=== PATIENT | female | born 1980 | race Caucasian/White ===

== ENCOUNTER 2016-07-15 08:10 | Day surgery (SDC) | payer OTHER ==
[2016-07-15] VITALS (10 sets, daily range): BP systolic 101–131; BP diastolic 43–87; PULSE 44–63; TEMP 96.9–98.3
[~2016-07-15] VITALS: Ht 162.6 cm; Wt 102.3 kg
[~2016-07-15 08:10] MED LIST: CHLOROPHYLL 3 M1 TAB PO; COLACE 100100 MG/CAP PO; ESTROGEN BALANCE PO; KEFIR PROBIOTIC PO; KELP1 TAB PO; LOVENOX 4040 MG/0.4 SQ; MOTRIN 800800 MG/TAB PO; PERCOCET 325 MG1 TA2 PO; VITAMIN D31000 IU PO
[2016-07-15] MEDS ORDERED: XANAX 0.5MG0.5 MG PO (09:11)
[2016-07-15] MEDS ORDERED: [UNRECOGNIZED DRUG - OTHER] PO (09:13)
[2016-07-15] MEDS ORDERED: PLANT ENZYME PO (09:15)
[2016-07-15] MEDS ORDERED: [UNRECOGNIZED DRUG - OTHER] PO (09:16)
[2016-07-15] MEDS ORDERED: [UNRECOGNIZED DRUG - OTHER] PO (09:17)
[2016-07-15] MEDS ORDERED: PROGESTERONE PO (09:18)
[2016-07-15] MEDS ORDERED: [UNRECOGNIZED DRUG - REMARK] PO (09:19)
[2016-07-15] MEDS ORDERED: VITAMIND3 5000 PO (09:20)
[2016-07-16] VITALS (7 sets, daily range): BP systolic 105–144; BP diastolic 51–84; PULSE 43–58; TEMP 97.1–98.2
== END 2016-07-16 18:41 | disposition home or self-care (01) ==
LOC: SDCO 08:10 → SURG 14:21 → SDCO 07-16 18:41
DX: Z46.51 Encounter for fitting and adjustment of gastric lap band (principal); S36.114A Minor laceration of liver, initial encounter; E66.01 Morbid (severe) obesity due to excess calories; M79.7 Fibromyalgia; M19.90 Unspecified osteoarthritis, unspecified site; Z86.718 Personal history of other venous thrombosis and embolism; Y83.8 Other surgical procedures as the cause of abnormal reaction of the patient, or of later complication, without mention of misadventure at the time of the procedure; Y82.8 Other medical devices associated with adverse incidents; Y92.234 Operating room of hospital as the place of occurrence of the external cause
CPT/HCPCS: OP; J0330; J0690; J1100; J1170; J1200; J2250; J2270; J2405; J2704; J2710; J7120

== ENCOUNTER 2016-07-20 10:46 | Emergency (ER) | payer OTHER ==
[~2016-07-20] VITALS: Ht 165.1 cm; Wt 100.0 kg
[~2016-07-20 10:46] MED LIST changes: +PLANT ENZYME PO; +PROGESTERONE PO; +VITAMIND3 5000 PO; +XANAX 0.5MG0.5 MG PO; +[UNRECOGNIZED DRUG - OTHER] PO; +[UNRECOGNIZED DRUG - OTHER] PO; +[UNRECOGNIZED DRUG - OTHER] PO; +[UNRECOGNIZED DRUG - REMARK] PO
[2016-07-20 11:00] VITALS: TEMP 99.1
[2016-07-20 12:17] LABS: BASO % 0.3 % (0.0-2.0); EOS # 0.2 (0.0-0.7); EOS % 1.6 % (0-4.0); GRAN # 6.2 (1.4-6.5); GRAN % 63.6 % (42.2-75.2); HEMATOCRIT 41.6 % (37.0-47.0); HEMOGLOBIN 13.6 g/dl (12.5-16.0); LYMPH % 30.4 % (20.0-51.0); MEAN CELL VOLUME 88 fl (80.0-100.0); MEAN CORPUSCULAR HEMOGLOBIN 29 pg (27.0-31.0); MEAN CORPUSCULAR HGB CONC 33 g/dl (33.0-37.0); MEAN PLATELET VOLUME 10.6 fl (7.4-10.4); MONO # 0.4 (0.1-0.6); MONO % 3.7 % (1.7-9.3); PLATELET COUNT 251 K/mm3 (130-400); RED BLOOD COUNT 4.74 M/mm3 (4.10-5.30); REDCELL DISTRIBUTION WIDTH-CV 12.3 % (11.5-14.5); WHITE BLOOD COUNT 9.7 K/mm3 (4.8-10.8)
[2016-07-20 12:21] LABS: INR 1.1 (0.8-3.0); PROTHROMBIN TIME 12.2 SECONDS (9.7-12.8)
[2016-07-20 12:21] LABS: PH 8 (5-8); SQUAMOUS EPITHELIAL 0-2 /hpf; URINE APPEARANCE Clear; URINE BACTERIA None Seen /hpf; URINE BILIRUBIN Negative (NEGATIVE); URINE BLOOD Negative (NEGATIVE); URINE COLOR Straw; URINE GLUCOSE Negative (NEGATIVE); URINE KETONE Negative (NEGATIVE); URINE RBC 0-2 /hpf; URINE UROBILINOGEN Negative (NEGATIVE); URINE WBC None Seen /hpf
[2016-07-20 12:23] LABS: PARTIAL THROMBOPLASTIN TIME 33.2 SECONDS (26.0-37.0)
[2016-07-20 12:35] LABS: ADJUSTED CALCIUM 9.8 mg/dL (8.4-10.2); ALANINE AMINOTRANSFERASE 43 U/L (9-52); ALBUMIN 4.3 gm/dL (3.5-5.0); ALKALINE PHOSPHATASE 62 U/L (50-136); ANION GAP 13 mmol/L (7-16); BILIRUBIN,TOTAL 0.6 mg/dL (0.0-1.0); BLOOD UREA NITROGEN 13 mg/dL (7-17); CARBON DIOXIDE 27 mmol/L (22-30); CHLORIDE 103 mmol/L (98-107); CREATININE, serum 0.71 mg/dL (0.52-1.25); GLUCOSE 83 mg/dL (74-106); LIPASE 28 U/L (23-300); POTASSIUM 4.3 mmol/L (3.4-5.0); SODIUM 142 mmol/L (137-145)
[2016-07-20 12:54] LABS: TROPONIN-I < 0.012 ng/mL (0.000-0.034)
[2016-07-20 13:20] VITALS: BP 134/84; PULSE 60
== END 2016-07-20 13:22 | disposition home or self-care (01) ==
LOC: COL.ER 10:46
PROVIDERS: Emergency Medicine
DX: R53.1 Weakness (principal); Z86.718 Personal history of other venous thrombosis and embolism; R06.02 Shortness of breath; R60.9 Edema, unspecified; M79.661 Pain in right lower leg
CPT/HCPCS: J7030; Q9967

== ENCOUNTER 2016-10-09 07:40 | Outpatient (RCR) | payer OTHER ==
[~2016-10-09] VITALS: Ht 165.1 cm; Wt 100.0 kg
[2016-10-09 07:50] VITALS: BP 121/69; PULSE 52; TEMP 97.9
[2016-10-09 09:05] LABS: BASO % 0.5 % (0.0-2.0); EOS # 0.1 (0.0-0.7); EOS % 1.9 % (0-4.0); GRAN % 48.4 % (42.2-75.2); HEMATOCRIT 40.3 % (37.0-47.0); HEMOGLOBIN 13.2 g/dl (12.5-16.0); LYMPH # 2.9 (1.2-3.4); LYMPH % 45.4 % (20.0-51.0); MEAN CELL VOLUME 90 fl (80.0-100.0); MEAN CORPUSCULAR HEMOGLOBIN 29 pg (27.0-31.0); MEAN CORPUSCULAR HGB CONC 33 g/dl (33.0-37.0); MEAN PLATELET VOLUME 10.4 fl (7.4-10.4); MONO # 0.2 (0.1-0.6); MONO % 3.5 % (1.7-9.3); PLATELET COUNT 236 K/mm3 (130-400); RED BLOOD COUNT 4.49 M/mm3 (4.10-5.30); REDCELL DISTRIBUTION WIDTH-CV 12.4 % (11.5-14.5); WHITE BLOOD COUNT 6.3 K/mm3 (4.8-10.8)
[2016-10-09 09:32] LABS: ADJUSTED CALCIUM 9.2 mg/dL (8.4-10.2); ALBUMIN 4.5 gm/dL (3.5-5.0); BILIRUBIN,TOTAL 0.7 mg/dL (0.0-1.0); CALCIUM 9.6 mg/dL (8.4-10.2); CREATININE, serum 0.75 mg/dL (0.52-1.25); POTASSIUM 4.2 mmol/L (3.4-5.0); TOTAL PROTEIN 7.8 gm/dL (6.4-8.2)
[2016-10-09 09:59] LABS: THYROID STIMULATING HORMONE 1.4 uIU/mL (0.465-4.680)
[2016-10-09 21:23] LABS: CORTISOL BASELINE 5 ug/dL (3-20)
[2016-10-09 21:39] LABS: CORTISOL 3O MINUTES 20 ug/dL (14-25)
[2016-10-12 15:08] LABS: ADRENOCORTICOTROPIC HORMONE 9.1 pg/mL (())
== END 2016-10-09 11:21 | disposition home or self-care (01) ==
LOC: EUO 07:40
PROVIDERS: Family Medicine
DX: R53.83 Other fatigue (principal)
CPT/HCPCS: J0834

== ENCOUNTER → 2017-09-15 | Outpatient (CLI) | payer OTHER | LOC: COL.RAD 09-10 14:15 | DX: M16.11 Unilateral primary osteoarthritis, right hip (principal); M24.151 Other articular cartilage disorders, right hip | CPT/HCPCS: A9585; Q9967 ==

== ENCOUNTER → 2018-08-18 | Outpatient (CLI) | payer OTHER | LOC: COL.RAD 08-15 09:45 | DX: H55.00 Unspecified nystagmus (principal); R20.0 Anesthesia of skin; R51 Headache | CPT/HCPCS: A9585 ==